=== PATIENT | female | born 1950 | race Caucasian/White ===

== ENCOUNTER 2017-07-11 20:25 | Emergency (ER) | payer MEDICARE, OTHER ==
[~2017-07-11] VITALS: Ht 160 cm; Wt 53.5 kg
[~2017-07-11 20:25] MED LIST: GABA-534 PO; OMEP20CA10 PO; SERT25TA PO
[2017-07-11 20:39] VITALS: BP 143/93
--- NOTE | 2017-07-11 22:50 | NUR ---
PT LEFT PER ADMITTING.
== END 2017-07-11 22:50 | disposition left against medical advice (07) ==
LOC: ER 20:28
DX: M54.9 Dorsalgia, unspecified (principal); Z53.21 Procedure and treatment not carried out due to patient leaving prior to being seen by health care provider
CPT/HCPCS: A4606; Z7610

== ENCOUNTER 2017-07-12 06:05 | Emergency (ER) | payer MEDICARE, OTHER ==
[~2017-07-12] VITALS: Ht 160 cm; Wt 53.5 kg
[2017-07-12 06:09] VITALS: BP 125/94
--- NOTE | 2017-07-12 06:45 | NUR ---
PT TO RADIOLOGY FOR X-RAY
[2017-07-12] MEDS ORDERED: KETOROLAC TROMETHAMINE 15 MG/ML VIAL ONE ×2 (06:50→07:18)
--- NOTE | 2017-07-12 07:00 | NUR ---
Livia fontaine in EDM - 07/12/17 at 0714 by KATHY Patient eloped from facility. NADEGE ASIF notified. Last known time pt was seen, [phone]
[2017-07-12] MEDS: KETOROLAC TROMETHAMINE INJ 30 MG/ML VIAL IM ONE ×2 (07:03→07:20)
--- NOTE | 2017-07-12 07:10 | NUR ---
PT BACK FROM X-RAY
--- NOTE | 2017-07-12 07:21 | NUR ---
REPORT GIVEN TO JESSE JAMES FOR [facility]
== END 2017-07-12 08:11 | disposition home or self-care (01) ==
LOC: ER 06:09
DX: M54.5 Low back pain (principal); I10 Essential (primary) hypertension; M48.56XA Collapsed vertebra, not elsewhere classified, lumbar region, initial encounter for fracture; M51.36 Other intervertebral disc degeneration, lumbar region; M51.37 Other intervertebral disc degeneration, lumbosacral region; F17.200 Nicotine dependence, unspecified, uncomplicated; M85.88 Other specified disorders of bone density and structure, other site; Z88.2 Allergy status to sulfonamides; Z88.8 Allergy status to other drugs, medicaments and biological substances; Z60.2 Problems related to living alone; Z98.890 Other specified postprocedural states
CPT/HCPCS: 72110-TC; A4606; J1885; Z7610